=== PATIENT | male | born 1990 | race African-American/Black ===

== ENCOUNTER 2025-02-27 19:05 | Emergency (ER) | payer MEDICAID ==
[~2025-02-27] VITALS: Ht 165.1 cm; Wt 62.0 kg
[2025-02-27 19:14] VITALS: O2SAT 100
[2025-02-27 19:34] VITALS: BP 110/71; PULSE 71; RESP 18; TEMP 36.8; O2SAT 100
[2025-02-28] MEDS ORDERED: LIDO700A30 TP (15:12)
[2025-02-28] MEDS ORDERED: CYCL10TA21 MT (15:12)
[2025-02-28] MEDS ORDERED: IBUP-2030 MT (15:12)
== END 2025-02-28 00:29 | disposition left against medical advice (07) ==
LOC: ER 19:05
DX: M54.50 Low back pain, unspecified (principal); F41.9 Anxiety disorder, unspecified; F32.A Depression, unspecified
CPT/HCPCS: 99281

== ENCOUNTER 2025-02-28 11:00 | Emergency (ER) | payer OTHER, MEDICAID ==
[~2025-02-28] VITALS: Ht 175.3 cm; Wt 66.0 kg
[2025-02-28 11:11] VITALS: O2SAT 100
[2025-02-28] MEDS: KETOROLAC 30MG/ML VIAL IM ONE (12:47)
[2025-02-28] MEDS: CYCLOBENZAPRINE 10MG TABLET PO ONE (12:47)
[2025-02-28] MEDS: LIDOCAINE 5% PATCH TOP STA (12:48)
[2025-02-28] MEDS ORDERED: IBUP-2030 MT (15:12)
[2025-02-28] MEDS ORDERED: LIDO700A30 TP (15:12)
[2025-02-28] MEDS ORDERED: CYCL10TA21 MT (15:12)
[2025-02-28] MEDS: HYDROCODONE/ACETAMINOPHEN 5/325MG TABLET PO ONE (15:28)
[2025-02-28 15:30] VITALS: BP 115/74; PULSE 78; RESP 16; TEMP 36.7; O2SAT 100
== END 2025-02-28 15:41 | disposition home or self-care (01) ==
LOC: ER 11:00
DX: M54.6 Pain in thoracic spine (principal); M25.511 Pain in right shoulder; M25.561 Pain in right knee; M79.661 Pain in right lower leg; M79.671 Pain in right foot; F41.9 Anxiety disorder, unspecified; F32.A Depression, unspecified; Z98.890 Other specified postprocedural states; V89.2XXA Person injured in unspecified motor-vehicle accident, traffic, initial encounter; Y93.89 Activity, other specified; Y92.410 Unspecified street and highway as the place of occurrence of the external cause; Y99.8 Other external cause status
CPT/HCPCS: 72040; 72070; 72100; 73030; 73562; 73610; 73620; 74176; 96372; 99285; J1885; Z7610 ×2